=== PATIENT | female | born 1970 ===

== ENCOUNTER → 2020-06-29 06:57 | Outpatient (CLI) | payer OTHER ==
[~2020-06-29 06:57] MED LIST: ABACAVIR300 MG; ISENTRESS400 MG; NEURONTIN300 MG; NORVIR100 MG; PREZISTA800 MG; SYNTHROID50 MCG; XARELTO20 MG
== END | disposition home or self-care (01) ==
LOC: PPH VACUNA 06:57
DX: Z23 Encounter for immunization (principal)

== ENCOUNTER 2020-07-20 08:00 | Outpatient (CLI) | payer OTHER | END 2020-07-20 08:30 | disposition home or self-care (01) | LOC: PPH VACUNA 08:00 | DX: Z23 Encounter for immunization (principal) ==